=== PATIENT | male | born 1985 | race Caucasian/White ===

== ENCOUNTER 2017-01-02 19:04 | Emergency (ER) | payer SELFPAY | END 2017-01-02 20:19 | disposition home or self-care (01) | LOC: FER 19:04 | DX: J10.1 Influenza due to other identified influenza virus with other respiratory manifestations (principal) | CPT/HCPCS: 87804; 87899; 99283 ==

== ENCOUNTER 2021-04-07 05:46 | Emergency (ER) | payer OTHER ==
[~2021-04-07 05:46] MED LIST: AMOXICILLIN500 MG PO; FIORICET1 EACH PO; IMITREX50 MG PO; LODINE400 MG PO
== END 2021-04-07 10:17 | disposition home or self-care (01) ==
LOC: FER 05:46
DX: G43.909 Migraine, unspecified, not intractable, without status migrainosus (principal); F17.200 Nicotine dependence, unspecified, uncomplicated; Z88.1 Allergy status to other antibiotic agents
CPT/HCPCS: J0780; J1885; J2405; J7030

== ENCOUNTER 2021-06-01 19:15 | Emergency (ER) | payer OTHER ==
[2021-06-01] MEDS ORDERED: PREDNISONE 20MG20 MG PO (21:18)
[2021-06-01] MEDS ORDERED: BACLOFEN 10MG T10 MG PO (21:18)
== END 2021-06-01 21:39 | disposition home or self-care (01) ==
LOC: FER 19:15
DX: M54.41 Lumbago with sciatica, right side (principal); F17.210 Nicotine dependence, cigarettes, uncomplicated; Z88.2 Allergy status to sulfonamides
CPT/HCPCS: 96372; 99283; J1100; J1885

== ENCOUNTER 2021-06-04 20:36 | Emergency (ER) | payer OTHER ==
[~2021-06-04 20:36] MED LIST changes: +BACLOFEN 10MG T10 MG PO; +PREDNISONE 20MG20 MG PO
[2021-06-04 22:57] LABS: BASOPHIL 0.9 % (0-2); EOSINOPHIL 2.9 % (0-5); HCT 47.4 % (42.0-52.0); LYMPHOCYTE 21.4 % (15-48); MCH 27.6 pg (25.0-31.0); MCHC 31.6 g/dL (32.0-36.0); MCV 87.3 fL (78.0-100.0); MONOCYTE 7.5 % (0-12); MPV 10.9 fL (6.0-9.5); NEUTROPHIL 66.9 % (41-80); NRBC 0; PLT 260 K/uL (150-400); RBC 5.43 M/uL (4.70-6.00); WBC 16.8 K/uL (4.0-10.5)
[2021-06-04] MEDS ORDERED: ONDANSETRON ODT4 MG PO (22:59)
[2021-06-04] MEDS ORDERED: NORCO 5-325 TA1 EACH PO (22:59)
[2021-06-04 23:09] LABS: ALBUMIN 3.5 g/dL (3.4-5.0); BILIRUBIN - TOTAL 0.2 mg/dL (0.2-1.0); BUN/CREAT RATIO (CALC) 17.5 RATIO; CREATININE 0.97 mg/dL (0.67-1.17); POTASSIUM 3.9 mmol/L (3.5-5.1); TOTAL PROTEIN 7.5 g/dL (6.4-8.2)
[2021-06-04 23:56] LABS: BILIRUBIN NEGATIVE (NEGATIVE); BLOOD 3+ Ery/uL (NEGATIVE); CLARITY CLEAR (CLEAR); COLOR YELLOW (YELLOW); GLUCOSE (U) NORMAL (NORMAL); LEUKOCYTES TRACE Leu/uL (NEGATIVE); NITRITE NEGATIVE (NEGATIVE); PROTEIN NEGATIVE (NEGATIVE); UROBILINOGEN 0.2 mg/dL (0.2-1.0)
[2021-06-05] LABS: URINARY RBC TNTC; URINARY WBC RARE
== END 2021-06-05 00:34 | disposition home or self-care (01) ==
LOC: FER 20:36
PROVIDERS: Emergency Medicine
DX: N13.2 Hydronephrosis with renal and ureteral calculous obstruction (principal); F17.210 Nicotine dependence, cigarettes, uncomplicated; Z88.8 Allergy status to other drugs, medicaments and biological substances
CPT/HCPCS: 36415; 80053; 81001; 85025; J1170; J2405

== ENCOUNTER 2021-08-29 18:32 | Emergency (ER) | payer OTHER ==
[~2021-08-29 18:32] MED LIST changes: +NORCO 5-325 TA1 EACH PO; +ONDANSETRON ODT4 MG PO
== END 2021-08-29 20:46 | disposition home or self-care (01) ==
LOC: FER 18:32
DX: K08.89 Other specified disorders of teeth and supporting structures (principal); I10 Essential (primary) hypertension; F17.200 Nicotine dependence, unspecified, uncomplicated; Z88.8 Allergy status to other drugs, medicaments and biological substances
CPT/HCPCS: 99282; J1885

== ENCOUNTER 2021-11-28 15:28 | Emergency (ER) | payer OTHER ==
[~2021-11-28 15:28] MED LIST changes: +CYCLOBENZAPRINE10 MG PO; +MEDROL 4MG DOSEP4 MG PO
[2021-11-28 17:34] LABS: EOSINOPHIL 3.2 % (0-5); HCT 47.3 % (42.0-52.0); HGB 14.7 g/dl (13.2-18.0); LYMPHOCYTE 28.3 % (15-48); MCH 27.1 pg (25.0-31.0); MCHC 31.1 g/dL (32.0-36.0); MCV 87.3 fL (78.0-100.0); MONOCYTE 6.2 % (0-12); MPV 10.6 fL (6.0-9.5); NEUTROPHIL 61.1 % (41-80); NRBC 0; PLT 255 K/uL (150-400); RBC 5.42 M/uL (4.70-6.00)
[2021-11-28 17:51] LABS: BUN/CREAT RATIO (CALC) 9.1 RATIO; CREATININE 0.88 mg/dL (0.67-1.17); POTASSIUM 4.3 mmol/L (3.5-5.1)
[2021-11-28] MEDS ORDERED: NORCO 5-325 TA1 EACH PO ×2 (19:32→19:54)
[2021-11-28] MEDS ORDERED: FLOMAX0.4 MG PO (19:56)
[2021-11-28] MEDS ORDERED: ONDANSETRON ODT4 MG PO (19:57)
== END 2021-11-28 19:45 | disposition home or self-care (01) ==
LOC: FER 15:28
PROVIDERS: Nurse Practitioner Family
DX: N20.0 Calculus of kidney (principal); I10 Essential (primary) hypertension
CPT/HCPCS: 36415; 80048; 85025; J1885

== ENCOUNTER 2022-04-18 06:05 | Emergency (ER) | payer OTHER ==
[~2022-04-18 06:05] MED LIST changes: +FLOMAX0.4 MG PO
[2022-04-18 06:21] LABS: BASOPHIL 1.1 % (0-2); EOSINOPHIL 3.3 % (0-5); HCT 50.6 % (42.0-52.0); HGB 15.9 g/dl (13.2-18.0); LYMPHOCYTE 22.6 % (15-48); MCH 27.6 pg (25.0-31.0); MCHC 31.4 g/dL (32.0-36.0); MCV 87.7 fL (78.0-100.0); MPV 11.2 fL (6.0-9.5); NEUTROPHIL 65.5 % (41-80); NRBC 0; PLT 247 K/uL (150-400); RBC 5.77 M/uL (4.70-6.00); RDW 13.9 % (11.5-14.0); WBC 14.9 K/uL (4.0-10.5)
[2022-04-18 07:05] LABS: ALBUMIN 3.7 g/dL (3.4-5.0); BILIRUBIN - TOTAL 0.2 mg/dL (0.2-1.0); BUN/CREAT RATIO (CALC) 11.8 RATIO; CREATININE 0.76 mg/dL (0.67-1.17); GLOBULIN (CALCULATION) 4.1 g/dL; POTASSIUM 3.4 mmol/L (3.5-5.1); TOTAL PROTEIN 7.8 g/dL (6.4-8.2)
[2022-04-18 07:12] LABS: CORONAVIRUS 2019 SARS-COV-2 NEGATIVE (NEGATIVE); INFLUENZA A NAA NEGATIVE (NEGATIVE)
== END 2022-04-18 08:58 | disposition home or self-care (01) ==
LOC: FER 06:05
PROVIDERS: Internal Medicine
DX: R07.89 Other chest pain (principal); F17.210 Nicotine dependence, cigarettes, uncomplicated; Z20.822 Contact with and (suspected) exposure to COVID-19; Z28.310 Unvaccinated for COVID-19
CPT/HCPCS: 36415; 71045; 80053; 84145; 84484; 85025; 93005; U0002

== ENCOUNTER 2022-06-10 19:59 | Emergency (ER) | payer OTHER ==
[2022-06-10] MEDS ORDERED: PREDNISONE 20MG20 MG PO (20:43)
== END 2022-06-10 21:22 | disposition home or self-care (01) ==
LOC: FER 19:59
DX: G89.29 Other chronic pain (principal); M54.50 Low back pain, unspecified; F17.210 Nicotine dependence, cigarettes, uncomplicated
CPT/HCPCS: J1885